=== PATIENT | male | born 1955 | race Caucasian/White ===

== ENCOUNTER 2016-12-20 06:56 | Day surgery (SDC) | payer OTHER ==
[~2016-12-20] VITALS: Ht 167.6 cm; Wt 84.6 kg
[~2016-12-20 06:56] MED LIST: ASPIRIN; BENA10TA48; JANUVIA; LOVA20TA; METF500T3
[2016-12-20 08:04] VITALS: Ht 167.6 cm; Wt 84.6 kg
[2016-12-20] MEDS ORDERED: PIOG15TA4 PO (08:17)
[2016-12-20] MEDS ORDERED: [UNRECOGNIZED DRUG - OTHER] (08:17)
[2016-12-20] MEDS ORDERED: DIABETES MED (08:17)
[2016-12-20 08:35] VITALS: BP 166/98; PULSE 75; RESP 21
--- NOTE | 2016-12-20 09:13 | OPPN ---
Date/Time of Note Date/Time of Note DATE: 12/20/16 TIME: 09:11 Operative Report Preoperative Diagnosis Screening Postoperative Diagnosis Poor prep and suboptimal exam Lipoma of the transverse colon Internal hemorrhoids Operation/Procedure Performed Colonoscopy and biopsy Surgeon see signature line assisted living executive director None Anesthesia: moderate sedation Estimated blood loss: none Transfusion Required none Specimen Lipoma Grafts/Implants none Complications none VARUN ALEMAN MD Dec 20, 2016 09:13
[2016-12-20] MEDS ORDERED: MIDAZOLAM 1 MG/ML 2 ML INJ ONE (09:30)
[2016-12-20] MEDS ORDERED: FENTAnyl 50 MCG/ML VIAL ONE (09:30)
--- NOTE | 2016-12-20 09:39 | GILP ---
DATE OF PROCEDURE: NAME OF PROCEDURES: Colonoscopy and biopsy. SURGEON: Jeovanny Barbour MD PREOPERATIVE DIAGNOSIS: Screening colonoscopy. POSTOPERATIVE DIAGNOSES 1. Colonoscopy all the way to the cecum. 2. Poor prep making the exam very suboptimal. 3. Lipoma of the transverse colon and biopsies were taken for histopathology. 4. Internal hemorrhoids. INDICATION FOR THE PROCEDURE: Mr. Charly Rose is a 61-year-old male patient who was scheduled for screening colonoscopy. The procedure and possible complications are well explained to the patient, he understood and consen abner to the procedure. DESCRIPTION OF PROCEDURE: Under the influence of fentanyl and Versed, the colonoscope was carefully introduced in the rectum and under direct vision, it was advanced all the way to the cecum. FINDINGS: The patient had poor prep making the exam very suboptimal. He had lipoma at the transver se colon and biopsies were taken for histopathology. He had internal hemorrhoids. He tolerated the procedure very well and there was no complication from the procedure. At the end o f the procedure, he was awake with stable vital signs and he was discharged home to the care of his family. IMPRESSION: Please see postoperative diagnosis. PLAN: The patient will need repeat colonoscopy with a better preparation in 1 year. Dictated By: JEOVANNY SMITH/JIM Conf#: [id number] DID#: [id number]
[2016-12-20 09:49] VITALS: BP 143/91; RESP 20
== END 2016-12-20 10:54 | disposition home or self-care (01) ==
LOC: GIL 06:56
PROVIDERS: ATTEND Internal Medicine Gastroenterology
DX: Z12.11 Encounter for screening for malignant neoplasm of colon (principal); D17.5 Benign lipomatous neoplasm of intra-abdominal organs; K64.8 Other hemorrhoids; E11.9 Type 2 diabetes mellitus without complications; I10 Essential (primary) hypertension
CPT/HCPCS: 45380; 82962; 88305; J2250; J3010; Z7610